=== PATIENT | male | born 1980 | race African-American/Black ===

== ENCOUNTER 2021-06-02 15:14 | Inpatient (IN) | payer OTHER ==
[~2021-06-02] VITALS: Ht 177.8 cm; Wt 121.1 kg
[2021-06-02] MEDS ORDERED: ASPIRIN 81 MG CHEW TAB PO ONE (15:30)
[2021-06-02 15:42] LABS: BASOPHILS # (AUTO) 0.1 (0.0-0.1); BASOPHILS % 0.8 % (0.0-1.0); EOSINOPHILS # (AUTO) 0.2 (0.0-0.4); EOSINOPHILS % 3.5 % (0.0-6.0); HEMOGLOBIN 14.4 g/dL (14.0-18.0); LYMPHOCYTES # (AUTO) 1.4 (1.0-3.2); LYMPHOCYTES % 23.5 % (18.0-39.1); MEAN CORPUSCULAR HEMOGLOBIN 30.4 pg (28-32); MEAN CORPUSCULAR HGB CONC 34.3 g/dL (31-35); MEAN CORPUSCULAR VOLUME 88.8 fL (81-99); MONOCYTES # (AUTO) 0.7 (0.2-0.8); MONOCYTES % 11.9 % (4.4-11.3); NEUTROPHILS # (AUTO) 3.6 (2.1-6.9); NEUTROPHILS % 59.8 % (38.7-80.0); PLATELET COUNT 146 x10e3/uL (140-360); RED BLOOD COUNT 4.73 x10e6/uL (4.3-5.7); RED CELL DISTRIBUTION WIDTH 14.1 % (11.7-14.4)
[2021-06-02 15:56] LABS: INR 1.11; PROTHROMBIN TIME 15.1 seconds (11.9-14.5)
[2021-06-02 15:57] LABS: PARTIAL THROMBOPLASTIN TIME 27.8 seconds (23.8-35.5)
[2021-06-02 15:58] LABS: ALBUMIN 3.7 g/dL (3.5-5.0); ALBUMIN/GLOBULIN RATIO 1.2 (0.8-2.0); ANION GAP 12.5 mmol/L (8-16); CALCIUM 8.7 mg/dL (8.4-10.2); CREATININE, SERUM 1.6 mg/dL (0.72-1.25); POTASSIUM 3.5 mmol/L (3.5-5.1)
[2021-06-02 16:04] LABS: CREATINE KINASE MB 15.1 ng/mL (0-5.0)
[2021-06-02] MEDS ORDERED: LABETALOL HCL 5 MG/ML 20ML VIAL IV STA (16:06)
[2021-06-02] MEDS ORDERED: HYDRALAZINE HCL 20 MG/ML VIAL IV PRN (17:00)
[2021-06-02] MEDS ORDERED: ONDANSETRON HCL INJ 2MG/ML 2ML 2 MG/ML VIAL IV PRN (17:00)
[2021-06-02] MEDS ORDERED: NITROGLYCERIN 0.4 MG SUBL SL PRN (17:00)
[2021-06-02] MEDS ORDERED: ACETAMINOPHEN 325 MG TAB PO PRN (17:45)
[2021-06-02 17:48] VITALS: BP_SYST 183; BP_DIAS 134; BP_DIAS 139
[2021-06-02] MEDS: METOPROLOL TARTRATE 50 MG TAB PO SCH (18:25)
[2021-06-02] MEDS: Morphine 2mg Syringe 2 MG/ML SYR IV PRN ×2 (18:25→21:48)
[2021-06-02] MEDS ORDERED: LISINOPRIL10 MG PO (18:47)
[2021-06-02 20:00] VITALS: BP 177/129
[2021-06-02 21:00] VITALS: BP 177/129
[2021-06-02] MEDS ORDERED: NIFEDIPINE CR 30 MG TAB PO SCH (21:00)
[2021-06-03] VITALS: BP 168/121
[2021-06-03 00:29] LABS: CREATINE KINASE MB 11.4 ng/mL (0-5.0)
[2021-06-03 04:00] VITALS: BP 163/119
[2021-06-03 05:04] LABS: BASOPHILS # (AUTO) 0.1 (0.0-0.1); BASOPHILS % 1.2 % (0.0-1.0); EOSINOPHILS # (AUTO) 0.2 (0.0-0.4); EOSINOPHILS % 4.1 % (0.0-6.0); HEMATOCRIT 40.7 % (38.2-49.6); HEMOGLOBIN 13.7 g/dL (14.0-18.0); LYMPHOCYTES # (AUTO) 1.5 (1.0-3.2); LYMPHOCYTES % 28.7 % (18.0-39.1); MEAN CORPUSCULAR HEMOGLOBIN 30.4 pg (28-32); MEAN CORPUSCULAR HGB CONC 33.7 g/dL (31-35); MEAN CORPUSCULAR VOLUME 90.2 fL (81-99); MONOCYTES # (AUTO) 0.6 (0.2-0.8); MONOCYTES % 11.8 % (4.4-11.3); NEUTROPHILS # (AUTO) 2.8 (2.1-6.9); NEUTROPHILS % 53.8 % (38.7-80.0); PLATELET COUNT 148 x10e3/uL (140-360); RED BLOOD COUNT 4.51 x10e6/uL (4.3-5.7); RED CELL DISTRIBUTION WIDTH 14.3 % (11.7-14.4)
[2021-06-03 05:39] LABS: ALBUMIN 3.2 g/dL (3.5-5.0); ALBUMIN/GLOBULIN RATIO 1.1 (0.8-2.0); ANION GAP 11.5 mmol/L (8-16); CALCIUM 8.5 mg/dL (8.4-10.2); CHOL/HDL RATIO 4.7 (3.9-4.7); CREATININE, SERUM 1.76 mg/dL (0.72-1.25); POTASSIUM 3.5 mmol/L (3.5-5.1)
[2021-06-03 05:58] LABS: CREATINE KINASE MB 10.9 ng/mL (0-5.0)
[2021-06-03 07:58] VITALS: BP 164/130
[2021-06-03] MEDS ORDERED: ALBUTEROL/IPRATROPIUM 3 ML NEB NEB PRN (08:00)
[2021-06-03 08:10] VITALS: BP 155/116
[2021-06-03] MEDS: METOPROLOL TARTRATE 50 MG TAB PO SCH (08:33)
[2021-06-03] MEDS ORDERED: ASPIRIN 81 MG ENTERIC COATED PO SCH (09:00)
[2021-06-03 11:43] VITALS: BP 162/113
[2021-06-03] MEDS ORDERED: NIFEDIPINE ER30 M1 PO (12:08)
[2021-06-03] MEDS ORDERED: PROVENTIL HFA6.7 GM INH (12:08)
[2021-06-03] MEDS ORDERED: METOPROLOL TART50 MG PO (12:08)
[2021-06-03] MEDS ORDERED: ONDANSETRON HCL 4 MG ORAL DISINTEGRATING TAB PO PRN (12:30)
[2021-06-03] MEDS ORDERED: LISINOPRIL10 MG PO (13:40)
== END 2021-06-03 13:44 | disposition home or self-care (01) | DRG 313 ==
LOC: ER 15:59 → ERHOLD 17:02 → MED/SURG2 18:12
PROVIDERS: ADMIT Internal Medicine; ATTEND Internal Medicine
DX: R07.89 Other chest pain (principal); I13.0 Hypertensive heart and chronic kidney disease with heart failure and stage 1 through stage 4 chronic kidney disease, or unspecified chronic kidney disease; I16.0 Hypertensive urgency; N18.30 Chronic kidney disease, stage 3 unspecified; Z20.822 Contact with and (suspected) exposure to COVID-19; Z91.19 Patient's noncompliance with other medical treatment and regimen; I50.9 Heart failure, unspecified
CPT/HCPCS: 36415; 71045; 80053; 80061; 82550; 82553; 83880; 84484; 85025; 85379; 85610; 85730; 93005; 93306; 94640; 94799; 99284; J2270; U0002

== ENCOUNTER 2021-06-11 14:41 | Inpatient (IN) | payer OTHER ==
[~2021-06-11] VITALS: Ht 177.8 cm; Wt 121.1 kg
[~2021-06-11 14:41] MED LIST: LISINOPRIL10 MG PO; METOPROLOL TART50 MG PO; NIFEDIPINE ER30 M1 PO; PROVENTIL HFA6.7 GM INH
[2021-06-11] MEDS ORDERED: FAMOTIDINE 20 MG/2 ML VIAL IV STA (15:14)
[2021-06-11 15:15] LABS: BASOPHILS % 0.4 % (0.0-1.0); EOSINOPHILS # (AUTO) 0.1 (0.0-0.4); HEMATOCRIT 40.5 % (38.2-49.6); HEMOGLOBIN 13.2 g/dL (14.0-18.0); LYMPHOCYTES # (AUTO) 0.9 (1.0-3.2); LYMPHOCYTES % 16.8 % (18.0-39.1); MEAN CORPUSCULAR HEMOGLOBIN 30.3 pg (28-32); MEAN CORPUSCULAR HGB CONC 32.6 g/dL (31-35); MEAN CORPUSCULAR VOLUME 93.1 fL (81-99); MONOCYTES # (AUTO) 0.6 (0.2-0.8); MONOCYTES % 10.4 % (4.4-11.3); NEUTROPHILS # (AUTO) 3.8 (2.1-6.9); PLATELET COUNT 189 x10e3/uL (140-360); RED BLOOD COUNT 4.35 x10e6/uL (4.3-5.7); RED CELL DISTRIBUTION WIDTH 14.2 % (11.7-14.4)
[2021-06-11] MEDS ORDERED: ALBUTEROL SULFATE HFA 8GM INHALATION AEROSOL INH PRN (15:15)
[2021-06-11 15:36] LABS: ALBUMIN 3.3 g/dL (3.5-5.0); ALBUMIN/GLOBULIN RATIO 1.2 (0.8-2.0); ANION GAP 13.9 mmol/L (8-16); CALCIUM 8.3 mg/dL (8.4-10.2); CREATININE, SERUM 1.44 mg/dL (0.72-1.25); POTASSIUM 3.9 mmol/L (3.5-5.1)
[2021-06-11 15:42] LABS: CREATINE KINASE MB 14.2 ng/mL (0-5.0)
[2021-06-11 16:00] LABS: INR 1.16; PARTIAL THROMBOPLASTIN TIME 26.8 seconds (23.8-35.5); PROTHROMBIN TIME 15.6 seconds (11.9-14.5)
[2021-06-11] MEDS ORDERED: SODIUM CHLORIDE FLUSH 10 ML SYR INJ PRN (17:00)
[2021-06-11] MEDS ORDERED: ASPIRIN 81 MG CHEW TAB PO ONE (17:00)
[2021-06-11] MEDS ORDERED: FUROSEMIDE INJ 10 MG/ML 4 ML VIAL IV ONE (17:00)
[2021-06-11] MEDS ORDERED: METOPROLOL TARTRATE 50 MG TAB PO SCH (17:15)
[2021-06-11] MEDS ORDERED: CLOPIDOGREL BISULFATE 75 MG TAB PO ONE (17:15)
[2021-06-11] MEDS: NIFEDIPINE CR 30 MG TAB PO SCH (17:21)
[2021-06-11 17:55] LABS: CLARITY,URINE CLEAR (CLEAR); COLOR,URINE STRAW (YELLOW); KETONES,URINE NEGATIVE (NEGATIVE); LEUKOCYTE ESTERASE ,URINE NEGATIVE (NEGATIVE); NITRITE,URINE NEGATIVE (NEGATIVE); PROTEIN,URINE DIPSTICK NEGATIVE (NEGATIVE); URINE UROBILINOGEN 0.2 mg/dL (0.2 - 1)
[2021-06-11 18:26] VITALS: BP 155/106
[2021-06-11 18:27] VITALS: BP 155/106
[2021-06-11 18:36] VITALS: BP 155/106
[2021-06-11] MEDS ORDERED: NIFEDIPINE ER60 M1 PO (18:38)
[2021-06-11] MEDS ORDERED: ZESTRIL40 MG PO (18:38)
[2021-06-11] MEDS ORDERED: ADVAIR 100-501 EACH INH (18:38)
[2021-06-11] MEDS: CARVEDILOL 12.5 MG TAB PO SCH (18:47)
[2021-06-11 19:33] LABS: CREATINE KINASE MB 13.6 ng/mL (0-5.0)
[2021-06-11 20:00] VITALS: BP_SYST 154; BP_SYST 161; BP_DIAS 117; BP_DIAS 118
[2021-06-11 20:57] VITALS: BP 155/106
[2021-06-11] MEDS ORDERED: CLONIDINE HCL 0.2 MG TAB PO PRN (22:00)
[2021-06-11] MEDS ORDERED: NIFEDIPINE CR 30 MG TAB PO ONE (22:00)
[2021-06-12] VITALS: BP 140/99
[2021-06-12 04:00] VITALS: BP 150/93
[2021-06-12 08:13] VITALS: BP 138/102
[2021-06-12] MEDS: NIFEDIPINE CR 30 MG TAB PO SCH (08:31)
[2021-06-12] MEDS: CARVEDILOL 12.5 MG TAB PO SCH (08:31)
[2021-06-12 08:34] VITALS: BP 138/102
[2021-06-12 08:57] LABS: BASOPHILS # (AUTO) 0.1 (0.0-0.1); EOSINOPHILS # (AUTO) 0.3 (0.0-0.4); EOSINOPHILS % 4.9 % (0.0-6.0); HEMATOCRIT 42.6 % (38.2-49.6); HEMOGLOBIN 13.7 g/dL (14.0-18.0); LYMPHOCYTES # (AUTO) 1.1 (1.0-3.2); LYMPHOCYTES % 22.1 % (18.0-39.1); MEAN CORPUSCULAR HEMOGLOBIN 30.3 pg (28-32); MEAN CORPUSCULAR HGB CONC 32.2 g/dL (31-35); MEAN CORPUSCULAR VOLUME 94.2 fL (81-99); MONOCYTES # (AUTO) 0.7 (0.2-0.8); MONOCYTES % 13.6 % (4.4-11.3); NEUTROPHILS % 58.2 % (38.7-80.0); PLATELET COUNT 175 x10e3/uL (140-360); RED BLOOD COUNT 4.52 x10e6/uL (4.3-5.7); RED CELL DISTRIBUTION WIDTH 14.2 % (11.7-14.4)
[2021-06-12] MEDS ORDERED: ASPIRIN 81 MG ENTERIC COATED PO SCH (09:00)
[2021-06-12] MEDS ORDERED: CLOPIDOGREL BISULFATE 75 MG TAB PO SCH (09:00)
[2021-06-12 09:23] LABS: ANION GAP 15.2 mmol/L (8-16); CALCIUM 8.5 mg/dL (8.4-10.2); CHOL/HDL RATIO 3.9 (3.9-4.7); CREATININE, SERUM 1.45 mg/dL (0.72-1.25); PHOSPHORUS 2.8 MG/DL (2.3-4.7); POTASSIUM 4.2 mmol/L (3.5-5.1)
[2021-06-12 09:35] LABS: CREATINE KINASE MB 10.6 ng/mL (0-5.0)
[2021-06-12 12:39] VITALS: BP 132/92
[2021-06-12] MEDS ORDERED: COREG12.5 MG PO (14:15)
[2021-06-12] MEDS ORDERED: PLAVIX75 MG PO (14:17)
[2021-06-12] MEDS ORDERED: CARVEDILOL 12.5 MG TAB PO SCH (17:00)
== END 2021-06-12 14:46 | disposition home or self-care (01) | DRG 291 ==
LOC: ER 15:20 → ERHOLD 16:55 → MED/SURG3 18:10
PROVIDERS: ADMIT Internal Medicine; ATTEND Internal Medicine
DX: I13.0 Hypertensive heart and chronic kidney disease with heart failure and stage 1 through stage 4 chronic kidney disease, or unspecified chronic kidney disease (principal); I50.33 Acute on chronic diastolic (congestive) heart failure; N18.30 Chronic kidney disease, stage 3 unspecified; Z87.09 Personal history of other diseases of the respiratory system; F17.200 Nicotine dependence, unspecified, uncomplicated; Z20.822 Contact with and (suspected) exposure to COVID-19
CPT/HCPCS: 36415; 71045; 80048; 80053; 80061; 81001; 82550; 82553; 83735; 83880; 84100; 84484; 85025; 85610; 85730; 93005; 94799; 99284; J1940; U0002